=== PATIENT | male | born 1995 | race Hispanic/Latino ===

== ENCOUNTER 2018-08-21 22:39 | Emergency (ER) | payer OTHER, SELFPAY ==
--- NOTE | 2018-08-21 23:22 | RAD ---
RADIOGRAPH LEFT ELBOW 3 VIEWS: 08/21/18 HISTORY: 23-year-old male with traumatic left elbow pain after fall. FINDINGS: There is no dislocation. An approximately 1.5 x 1.5 cm faint ossific or calcific density overlaps the junction between the capitellum and the radial head. The lateral aspect of the radial head has focal region of irregular low attenuation. There is a tiny, minimally displaced or nondisplaced fragment a t the tip of the coronoid process. No evidence of joint effusion; however. IMPRESSION: 1. Suspicious for acute, traumatic, fracture of either the radial head or the capitellum, with d isplacement. 2. Questionable tiny avulsion fracture of coronoid process. 3. Recommend noncontrast CT of the elbow for further evaluation. POS: PAULINO
[2018-08-21] MEDS ORDERED: Morphine 2 MG/ML SYRINGE ONE (23:59)
[2018-08-22] MEDS ORDERED: Ketorolac Tromethamine 30 MG/ML VIAL ONE (00:48)
[2018-08-22] MEDS ORDERED: HYDROcodone/Acetaminophen 10/325 mg Tablet ONE (02:27)
--- NOTE | 2018-08-22 08:35 | CT ---
CT LEFT ELBOW NONCONTRAST: Date: 08-22-18 Time: 12:29 a.m. History: 23-year-old male with traumatic left elbow pain after fall. FINDINGS: There is no dislocation. There is a fracture defect at the anterior, superior, lateral corner of the radial head. There is an approximately 1.5 x 0.3 x 0.9 cm displaced cortical fracture fragment locate d posterior to the right lateral humeral condyle and anterolateral to the olecranon process. Slightly superior to that, there is a somewhat smaller fracture fragment. They may be originating from what a ppears to be a shallow defect of the posterior cortical surface of the posterior superior surface of the lateral humeral condyle. Despite the questionable appearance on the plain radiograph, there is no definite evidence of fracture of the coronoid process of the proximal ulna. There is a tiny calcific density abutting the superior tip of the olecranon process which may or may not be a chip or avulsiv e fracture. IMPRESSION: 1. Displaced chip or avulsion fracture of dorsal surface of lateral humeral condyle. 2. Displaced chip or avulsion fracture at radial head. POS: PAULINO
== END 2018-08-22 03:18 | disposition home or self-care (01) ==
LOC: ERS 22:39
DX: S52.122A Displaced fracture of head of left radius, initial encounter for closed fracture (principal); S42.452A Displaced fracture of lateral condyle of left humerus, initial encounter for closed fracture; W18.30XA Fall on same level, unspecified, initial encounter
CPT/HCPCS: 29105; 96374; 96375; J1885; J2270